=== PATIENT | female | born 1980 | race African-American/Black ===

== ENCOUNTER 2019-08-22 10:04 | Emergency (ER) | payer SELFPAY ==
[~2019-08-22] VITALS: Ht 160 cm; Wt 67.2 kg
[2019-08-22 10:45] LABS: BILIRUBIN,URINE NEGATIVE (NEG); COLOR,URINE YELLOW; NITRITE,URINE NEGATIVE (NEG); PROTEIN,URINE NEGATIVE (NEG-TRACE)
[2019-08-22 10:47] LABS: CLARITY,URINE HAZY
[2019-08-22 10:48] LABS: BACTERIA,URINE FEW /HPF (0-FEW); SQUAMOUS EPITHELIAL CELL,UR OCC /LPF
[2019-08-22] MEDS ORDERED: CEPH-264 PO (11:13)
--- NOTE | 2019-08-22 11:13 | PHYS DOC ---
Past Medical History Past Medical History: No Pertinent History Past Surgical History: No Surgical History Alcohol Use: None Adult General Chief Complaint Chief Complaint: BLOOD IN URINE [facility] Patient is a 38 year old female who presents with vaginal bleeding when going the bathroom that started on Thursday night. Patient denies any abdominal pain, denies any nausea. Patient is she states that she is 9 weeks , she is unsure when the LMP. [id number]. Denies any other complaints. Has not yet seen an OB for care. Complete ROS were reviewed and found to be within normal limits, except as documented in the [facility] Allergies Allergies Allergies Coded Allergies Type Severity Reaction Last Updated Verified No Known Drug Allergies 08/22/19 No Physical Exam Physical Exam Constitutional: Well developed, well nourished, no acute distress, non-toxic appearance. [] HENT: Normocephalic, atraumatic, bilateral external ears normal, oropharynx moist, no oral exudates, nose normal. [] Eyes: PERRLA, EOMI, conjunctiva normal, no discharge. [] Neck: Normal range of motion, no tenderness, supple, no stridor. [] Cardiovascular:Heart rate regular rhythm, no murmur [] Lungs & Thorax: Bilateral breath sounds clear to auscultation [] Abdomen: Bowel sounds normal, soft, no tenderness, no masses, no pulsatile masses. [] Skin: Warm, dry, no erythema, no rash. [] Back: No tenderness, no CVA tenderness. [] Extremities: No tenderness, no cyanosis, no clubbing, ROM intact, no edema. [] Neurologic: Alert and oriented X 3, normal motor function, normal sensory function, no focal deficits noted. [] Psychologic: Affect normal, judgement normal, mood normal. [] Current Patient Data Vital Signs Vital Signs Date Time Temp Pulse Resp B/P (MAP) Pulse Ox O2 Delivery O2 Flow Rate FiO2 08/22/19 10:36 98.7 123 18 158/90 (112) 100 Room Air 98.7 Lab Values Laboratory Tests Test 08/22/19 10:25 08/22/19 10:27 08/22/19 12:10 Urine Collection Type Unknown Urine Color Yellow Urine Clarity Hazy Urine pH 6.0 Urine Specific Bittinger 1.010 Urine Protein Negative mg/dL (NEG-TRACE) Urine Glucose (UA) Negative mg/dL (NEG) Urine Ketones (Stick) Negative mg/dL (NEG) Urine Blood Large (NEG) Urine Nitrite Negative (NEG) Urine Bilirubin Negative (NEG) Urine Urobilinogen Dipstick 1.0 mg/dL (0.2 mg/dL) Urine Leukocyte Esterase Trace (NEG) Urine RBC 1-2 /HPF (0-2) Urine WBC 1-4 /HPF (0-4) Urine Squamous Epithelial Cells Occ /LPF Urine Bacteria Few /HPF (0-FEW) POC Urine HCG, Qualitative Hcg positive (Negative) White Blood Count 8.8 x10^3/uL (4.0-11.0) Red Blood Count 4.90 x10^6/uL (3.50-5.40) Hemoglobin 13.6 g/dL (12.0-15.5) Hematocrit 41.1 % (36.0-47.0) Mean Corpuscular Volume 84 fL (79-100) Mean Corpuscular Hemoglobin 28 pg (25-35) Mean Corpuscular Hemoglobin Concent 33 g/dL (31-37) Red Cell Distribution Width 14.4 % (11.5-14.5) Platelet Count 214 x10^3/uL (140-400) Neutrophils (%) (Auto) 76 % (31-73) H Lymphocytes (%) (Auto) 18 % (24-48) L Monocytes (%) (Auto) 5 % (0-9) Eosinophils (%) (Auto) 0 % (0-3) Basophils (%) (Auto) 1 % (0-3) Neutrophils # (Auto) 6.7 x10^3/uL (1.8-7.7) Lymphocytes # (Auto) 1.6 x10^3/uL (1.0-4.8) Monocytes # (Auto) 0.5 x10^3/uL (0.0-1.1) Eosinophils # (Auto) 0.0 x10^3/uL (0.0-0.7) Basophils # (Auto) 0.1 x10^3/uL (0.0-0.2) Maternal Serum HCG Beta Subunit 46093 mIU/mL (0-5) H Sodium Level 140 mmol/L (136-145) Potassium Level 3.6 mmol/L (3.5-5.1) Chloride Level 103 mmol/L (98-107) Carbon Dioxide Level 25 mmol/L (21-32) Anion Gap 12 (6-14) Blood Urea Nitrogen 8 mg/dL (7-20) Creatinine 0.6 mg/dL (0.6-1.0) Estimated GFR (Cockcroft-Gault) 134.0 BUN/Creatinine Ratio 13 (6-20) Glucose Level 95 mg/dL (70-99) Calcium Level 9.4 mg/dL (8.5-10.1) Total Bilirubin 0.6 mg/dL (0.2-1.0) Aspartate Amino Transferase (AST) 13 U/L (15-37) L Alanine Aminotransferase (ALT) 13 U/L (14-59) L Alkaline Phosphatase 42 U/L (46-116) L Total Protein 7.5 g/dL (6.4-8.2) Albumin 3.8 g/dL (3.4-5.0) Albumin/Globulin Ratio 1.0 (1.0-1.7) Laboratory Tests 08/22/19 12:10 Laboratory Tests 08/22/19 12:10 EKG EKG [] Radiology/Procedures Radiology/Procedures [][facility] [address] [place], [place] [id number] IMAGING REPORT Signed PATIENT: CHERELLE AMAYA ACCOUNT: [id number] : 1980 LOCATION: ER AGE: 38 SEX: F EXAM STATUS: REG ER ORD. PHYSICIAN: PRICE SEGURA APRN REASON: 9 weeks , vaginal bleeding PROCEDURE: OB <14 WKS W/TV OB <14 WKS W/TV History: Vaginal bleeding. Reportedly 9 weeks Comparison: None. Technique: Grayscale and color Doppler imaging of the pelvis was performed using transabdominal and transvaginal technique. Findings: The uterus measures 12.7 x 7.8 cm in length. No evidence of intrauterine gestational sac. Thickened endometrium measures 1.3 cm. Multiple is masses within the uterus largest measures 7.8 x 7.8 x 5.0 cm. Bilateral ovaries not identified due to positioning and overlying bowel gas. No adnexal fluid collection or mass. No free fluid. IMPRESSION: 1. No intrauterine gestational sac. Thickened endometrium. Recommend clinical correlation with patient's history and serial beta-hCG testing. Short-term ultrasound follow-up may be of benefit. 2. Multiple uterine fibroids. Electronically signed by: Sana Pollock DO (08/22/2019 12:15 PM) [id number] DICTATED and SIGNED BY: SANA POLLOCK DO DATE: 08/22/19 1215 Course & Med Decision Making Course & Med Decision Making Pertinent Labs and Imaging studies reviewed. (See chart for details) Will get urine, labs, and ultrasound. IMPRESSION: 1. No intrauterine gestational sac. Thickened endometrium. Recommend clinical correlation with patient's history and serial beta-hCG testing. Short-term ultrasound follow-up may be of benefit. 2. Multiple uterine fibroids. Electronically signed by: Sana Pollock DO (08/22/2019 12:15 PM) [facility] Blood type is O + Labs are unremarkable. Urine shows leukocytes and blood. Will have follow up with Dr. Pollock for further testing. Dragon Disclaimer Dragon Disclaimer This electronic medical record was generated, in whole or in part, using a voice recognition dictation system. Departure Departure Impression: Primary Impression: Urinary tract infection affecting Additional Impression: Vaginal bleeding in Disposition: 01 HOME, SELF-CARE Condition: STABLE Referrals: NO PCP (PCP) PRICE POLLOCK MD Patient Instructions: - Urinary Tract Infection Additional Instructions: Thank you for visiting [facility]. We appreciate you trusting us with your care. If any additional problems come up don't hesitate to return to visit us. Please follow up with your primary care provider so they can plan additional care if needed and know about the problem that you had. If symptoms worsen come back to the Emergency Department. Any concerning symptoms that start such as chest pain, shortness of air, weakness or numbness on one side of the body, running high fevers or any other concerning symptoms return to the ER. You have been prescribed an antibiotic today to help fight your infection. Please take all of the antibiotic as directed. If after 48 hours the infection i s not improving, please return for more care. If the infection worsens, return to ER for additional care. Please follow up with Dr. Pollock this week for additional testing. Scripts Cephalexin (KEFLEX) 500 Mg Capsule 1 CAP PO BID for 7 Days, #14 CAP 0 Refills Prov: PRICE SEGURA APRN 08/22/19 Problem Qualifiers PRICE SEGURA APRN Aug 22, 2019 11:13
--- NOTE | 2019-08-22 12:19 | RAD ---
OB <14 WKS W/TV History: Vaginal bleeding. Reportedly 9 weeks Comparison: None. Technique: Grayscale and color Doppler imaging of the pelvis was performed using transabdominal and transvaginal technique. Findings: The uterus measures 12.7 x 7.8 cm in length. No evidence of intrauterine gestational sac. Thickened endometrium measures 1.3 cm. Multiple is masses within the uterus largest measures 7.8 x 7.8 x 5.0 cm. Bilateral ovaries not identified due to positioning and overlying bowel gas. No adnexal fluid collection or mass. No free fluid. IMPRESSION: 1. No intrauterine gestational sac. Thickened endometrium. Recommend clinical correlation with patient's history and serial beta-hCG testing. Short-term ultrasound follow-up may be of benefit. 2. Multiple uterine fibroids. Electronically signed by: Harish Menendez DO (08/22/2019 12:15 PM) [id number]
[2019-08-22 12:34] LABS: BASO # 0.1 x10^3/uL (0.0-0.2); BASO % 1 % (0-3); EOS % 0 % (0-3); HEMATOCRIT 41.1 % (36.0-47.0); HEMOGLOBIN 13.6 g/dL (12.0-15.5); LYMPH # 1.6 x10^3/uL (1.0-4.8); LYMPH % 18 % (24-48); MEAN CORPUSCULAR HEMOGLOBIN 28 pg (25-35); MEAN CORPUSCULAR HGB CONC 33 g/dL (31-37); MEAN CORPUSCULAR VOLUME 84 fL (79-100); MONO # 0.5 x10^3/uL (0.0-1.1); MONO % 5 % (0-9); NEUT # 6.7 x10^3/uL (1.8-7.7); NEUT % 76 % (31-73); PLATELET COUNT 214 x10^3/uL (140-400); RED CELL DISTRIBUTION WIDTH 14.4 % (11.5-14.5); WHITE BLOOD COUNT 8.8 x10^3/uL (4.0-11.0)
[2019-08-22 12:45] LABS: CALCIUM 9.4 mg/dL (8.5-10.1); CREATININE 0.6 mg/dL (0.6-1.0); POTASSIUM 3.6 mmol/L (3.5-5.1)
[2019-08-22 12:52] LABS: ALBUMIN 3.8 g/dL (3.4-5.0); TOTAL BILIRUBIN 0.6 mg/dL (0.2-1.0); TOTAL PROTEIN 7.5 g/dL (6.4-8.2)
[2019-08-22 13:30] VITALS: BP 152/78
== END 2019-08-22 13:49 | disposition home or self-care (01) ==
LOC: ER 10:04
DX: O23.41 Unspecified infection of urinary tract in pregnancy, first trimester (principal); O46.91 Antepartum hemorrhage, unspecified, first trimester; Z3A.09 9 weeks gestation of pregnancy
CPT/HCPCS: 36415; 76801; 76817; 80053; 81001; 81025; 84702; 85025; 86900; 86901; 87086; 99285